=== PATIENT | female | born 1950 | race Caucasian/White ===

== ENCOUNTER 2019-12-16 19:46 | Inpatient (IN) | payer MEDICARE ==
[~2019-12-16] VITALS: Ht 172.7 cm; Wt 74.8 kg
--- NOTE | 2019-12-16 19:50 | NUR ---
PT AAOX4. AMBUALTORY WITH STEADY GAIT. BIBRA C/O LLQ ABD PAIN RADIATING TO THE BACK. + NAUSEA, - DYSURIA. PT STATED IT STARTED ABOUT 7 HORUS AGO. PLACED ON MONITOR AND PULSE OX. MD AT BEDSIDE FOR EVAL. AWAITING ORDERS.
[2019-12-16] MEDS ORDERED: MORPHINE SULFATE INJ 2 MG/ML DISP.SYRIN ONE (19:59)
[2019-12-16] MEDS ORDERED: ONDANSETRON HCL/PF 4 MG/2 ML VIAL ONE (19:59)
[2019-12-16] MEDS ORDERED: ONDANSETRON HCL/PF 4 MG/2 ML VIAL IVP ONE (20:00)
[2019-12-16] MEDS ORDERED: MORPHINE SULFATE INJ 2 MG/ML DISP.SYRIN IV ONE ×3 (20:00→22:00)
[2019-12-16] MEDS ORDERED: IV NS 0.9% 1,000 ML BAG IV ONE (20:00)
--- NOTE | 2019-12-16 20:04 | NUR ---
PT TAKEN TO CT
--- NOTE | 2019-12-16 20:10 | NUR ---
URINE SENT TO LAB
--- NOTE | 2019-12-16 20:10 | NUR ---
PT STATED SHE IS ALLERGIC TO DILAUDID BUT IS OKAY TO TAKE MORPHINE. AWARE.
--- NOTE | 2019-12-16 20:12 | NUR ---
PT BACK FROM CT
--- NOTE | 2019-12-16 20:29 | NUR ---
PROVIDER RELATIONS MANAGER AT BEDSIDE
--- NOTE | 2019-12-16 20:52 | NUR ---
SPOKE TO COMMAND POST CRAFTSMAN REGARDING URINE SAMPLE. STATED IT IS GOING TO BE PROCESSED SOON.
--- NOTE | 2019-12-16 20:52 | NUR ---
PT RESTING COMFORTBALY. VSS. PROVIDED WITH ADRIAN.
[2019-12-16 21:02] LABS: APPEARANCE,URINE Clear (CLEAR); BILIRUBIN,URINE Negative (NEGATIVE); BLOOD, URINE Trace-lysed Ery/uL (NEGATIVE); COLOR,URINE Yellow (YELLOW); KETONES,URINE 15 (NEGATIVE); LEUKOCYTE ESTERASE ,URINE Negative (NEGATIVE); NITRITE, URINE Negative (NEGATIVE); PROTEIN,URINE 30 mg/dl (NEGATIVE); UGLUCOSE Negative (NEGATIVE); UROBILINOGEN,URINE 0.2 EU/dL (0.2)
--- NOTE | 2019-12-16 21:04 | NUR ---
SPOKE TO SAUSAGE COOKER. RUNNING THE [facility] WILL DRAW SOON.
--- NOTE | 2019-12-16 21:16 | NUR ---
SWITCHBOARD RECEPTIONIST AT BEDSIDE
--- NOTE | 2019-12-16 21:22 | NUR ---
PAGED ABY SOLIS
[2019-12-16 21:25] LABS: BACTERIA,URINE Rare /HPF (None Seen); RBC,URINE 2-3/HPF /HPF (0-2); SQUAMOUS EPITHELIAL CELL,UR Few /HPF (None Seen); URINE AMORPHOUS URATE Rare /HPF (None Seen); WBC,URINE 0-2 /HPF (0-3)
[2019-12-16 21:34] LABS: BASOPHILS % (AUTO) 0.5 % (0.0-2.0); EOSINOPHILS % (AUTO) 0.1 % (0.0-6.0); HEMATOCRIT 27 % (33-45); HEMOGLOBIN 8.7 g/dL (11.5-14.8); LYMPHOCYTES # (AUTO) 0.5 /CMM (0.8-4.8); LYMPHOCYTES % (AUTO) 7.6 % (20.0-44.0); MEAN CORPUSCULAR HGB CONC 33 g/dl (31.0-36.0); MEAN CORPUSCULAR VOLUME 85 fL (82-100); MONOCYTES # (AUTO) 0.2 /CMM (0.1-1.30); MONOCYTES % (AUTO) 3.2 % (2.0-12.0); NEUTROPHILS # (AUTO) 6.1 /CMM (1.8-8.9); NEUTROPHILS % (AUTO) 88.6 % (43.0-81.0); PLATELET COUNT (AUTO) 180 /CMM (150-450); RED BLOOD CELL COUNT(AUTO) 3.13 MIL/uL (4.0-5.2); WHITE BLOOD COUNT (AUTO) 6.9 K/uL (4.3-11.0)
--- NOTE | 2019-12-16 21:35 | NUR ---
CALLED [facility] FOR BED
--- NOTE | 2019-12-16 21:37 | NUR ---
PT AMBULATED TO THE RESTROOM
[2019-12-16 21:43] LABS: CREATININE 1.2 mg/dL (0.6-1.3); POTASSIUM 3.4 mmol/L (3.5-5.1)
--- NOTE | 2019-12-16 21:43 | NUR ---
DR. RUTH SPEAKING WITH HOSPITALIST
[2019-12-16] MEDS ORDERED: IV 1/2NS 1000 ML 1,000 ML IV PRN (21:47)
[2019-12-16 21:49] LABS: ALBUMIN 2.5 g/dL (3.4-5.0); BILIRUBIN,DIRECT 0.1 mg/dL (0.0-0.2); BILIRUBIN,TOTAL 0.3 mg/dL (0.2-1.0); TOTAL PROTEIN, SERUM 4.9 g/dL (6.4-8.2)
--- NOTE | 2019-12-16 21:58 | NUR ---
BED ASSIGNMENT 201
[2019-12-16] MEDS ORDERED: Z GUARD REMEDY 2 OZ OINT TP PRN (22:00)
[2019-12-16] MEDS ORDERED: MAGNESIUM HYDROXIDE 30 ML UDC PO PRN (22:00)
[2019-12-16] MEDS ORDERED: POTASSIUM CHLORIDE 20 MEQ TAB.PRT.SR PO ONE (22:00)
[2019-12-16] MEDS ORDERED: MAG HYDROX/AL HYDROX/SIMETH 30 ML UDC PO PRN (22:00)
[2019-12-16] MEDS ORDERED: ACETAMINOPHEN 325 MG TABLET PO PRN (22:00)
[2019-12-16] MEDS ORDERED: ONDANSETRON HCL/PF - ER 4 MG/2 ML VIAL IV ONE (22:00)
--- NOTE | 2019-12-16 22:54 | NUR ---
REPORT GIVEN TO JERRELL RIVERO FOR YOLANDE
--- NOTE | 2019-12-16 22:55 | NUR ---
PT TRANSFERED PER [facility]
[2019-12-16 23:10] VITALS: BP 142/77
[2019-12-16] MEDS ORDERED: METO25TA3 PO ×2 (23:24)
[2019-12-16] MEDS ORDERED: LANS30CA54 PO (23:24)
[2019-12-16] MEDS ORDERED: HYDR-4354 PO (23:25)
[2019-12-16] MEDS ORDERED: BACL10TA PO (23:27)
[2019-12-16] MEDS ORDERED: LIFI1DRO OP (23:28)
--- NOTE | 2019-12-16 23:30 | NUR ---
RN ADMITTING NOTES RECEIVED REPORT FROM REAL ESTATE RENTAL AGENT NADEGE. Pt ARRIVED TO THE FLOOR VIA WHEELCHAIR; WAS ABLE TO WALK TO THE ROOM BED WITH STEADY GAIT. Pt IS A/OX4, VERBAL, ABLE TO MAKE NEEDS KNOWN. NO S/S OF ACUTE DISTRESS OR SOB NOTED AT THIS TIME. IV ACCESS ON LHAND #20G. SAFETY MEASURES IN PLACE. BED LOW, LOCKED, HOB ELEVATED, SIDE RAILS UP, CALL LIGHT AND BEDSIDE TABLE WITHIN REACH. BED ALARM ON. WILL CONTINUE TO MONITOR Pt's CONDITION AND SAFETY THROUGHOUT THE NIGHT.
[2019-12-16] MEDS ORDERED: FEXO180T94 PO (23:32)
[2019-12-17] VITALS: BP 142/77
--- NOTE | 2019-12-17 | NUR ---
RN NOTES Pt REFUSED TO TAKE OFF UNDERWEAR. ONLY ALLOWED PARTIAL SKIN ASSESSMENT. NO WOUNDS NOTED ON LOWER LEGS OR ARMS. PER Pt STATEMENT HAS NO WOUNDS ON BUTTOCKS OR SACRUM. Pt IS REFUSING FOR BED ALARM TO BE ON.
--- NOTE | 2019-12-17 00:05 | NUR ---
RN NOTES Pt IS REFUSING TO GIVE HER HOME MEDS TO US. SAID THAT SHE HAD A BAD EXPERIENCE WITH THE HOSPITAL LOSING HER HOME MEDS, AND NO LONGER TRUSTS THEM OR THE PHARMACY. TRIED EXPLAINING TO THE Pt HOW WE STORE THE HOME MEDS IN A SEALED ENVELOPE THAT PREVENTS THEFT OR TAMPERING AND THAT IT IS KEPT SAFE IN THE PHARMACY UNTIL Pt IS DISCHARGED, WHICH THEN WE BRING BACK TO THE Pt BEFORE THEY LEAVE. Pt STATED "THAT IS WHAT THEY ALL SAID TO ME AND THEY STILL ENDED UP LOSING MY MEDS OR NOT GIVING THEM BACK TO ME." SO Pt IS STILL REFUSING TO GIVE UP HER HOME MEDS THAT ARE KEPT IN 2 MINI ZIP LOCK BAGS AND LABELED "BACLOFEN" AND "VEDA" ON THE BAGS. WILL ENDORSE TO DAYSHIFT RN TO BE MADE AWARE.
[2019-12-17] MEDS: MORPHINE SULFATE INJ 2 MG/ML DISP.SYRIN IV PRN ×2 (02:27→06:46)
[2019-12-17] MEDS: ONDANSETRON HCL/PF 4 MG/2 ML VIAL IVP PRN ×2 (04:42→11:05)
[2019-12-17 06:17] LABS: BASOPHILS # (AUTO) 0.1 /CMM (0.0-0.2); BASOPHILS % (AUTO) 0.6 % (0.0-2.0); EOSINOPHILS % (AUTO) 0.1 % (0.0-6.0); HEMATOCRIT 31 % (33-45); HEMOGLOBIN 10.1 g/dL (11.5-14.8); LYMPHOCYTES # (AUTO) 0.7 /CMM (0.8-4.8); LYMPHOCYTES % (AUTO) 9.3 % (20.0-44.0); MEAN CORPUSCULAR HGB CONC 33 g/dl (31.0-36.0); MEAN CORPUSCULAR VOLUME 84 fL (82-100); MONOCYTES # (AUTO) 0.5 /CMM (0.1-1.30); MONOCYTES % (AUTO) 6.3 % (2.0-12.0); NEUTROPHILS # (AUTO) 6.7 /CMM (1.8-8.9); NEUTROPHILS % (AUTO) 83.7 % (43.0-81.0); PLATELET COUNT (AUTO) 219 /CMM (150-450)
--- NOTE | 2019-12-17 06:35 | NUR ---
RN CLOSING NOTES NO SIGNIFICANT CHANGES IN Pt's CONDITION DURING THE NIGHT. ALL NEEDS MET AND ATTENDED TO. Pt REMAINED STABLE PER BASELINE. NO S/S OF SEVERE ACUTE DISTRESS OR SOB NOTED DURING THE SHIFT. SAFETY MEASURES IN PLACE. Pt RESTING IN BED. WILL ENDORSE TO DAYSHIFT RN FOR Pt's YOLANDE.
[2019-12-17 06:42] LABS: CALCIUM, SERUM 9.4 mg/dL (8.5-10.1); CREATININE 1.7 mg/dL (0.6-1.3); MAGNESIUM 1.7 mg/dL (1.8-2.4); PHOSPHORUS 4.5 mg/dL (2.5-4.9); POTASSIUM 4.1 mmol/L (3.5-5.1)
[2019-12-17 06:58] LABS: THYROID STIMULATING HORMONE 0.578 uIU/mL (0.358-3.74)
--- NOTE | 2019-12-17 07:45 | NUR ---
RN OPENING NOTES Patient is resting in bed, A/O x4, showing no signs of acute distress or SOB, stable on RA. Patient has no complaints of pain at this time. IV line in the left hand #20g is clean and intact runing 1/2 NS @ 100mls/hr. Bed is in lowest position, side rails x3 in upright position, call light is within reach. Fall, safety and aspiration precautions enforced. Will continue to monitor.
[2019-12-17 08:00] VITALS: BP 174/90
[2019-12-17] MEDS: PANTOPRAZOLE 40 MG VIAL IV SCH ×2 (08:58→18:16)
[2019-12-17] MEDS ORDERED: PANTOPRAZOLE 40 MG TABLET.DR PO SCH (09:00)
[2019-12-17] MEDS ORDERED: hydrALAZINE HCL IV 20 MG VIAL IV PRN (09:00)
[2019-12-17] MEDS: ENOXAPARIN SODIUM 40 MG/0.4 ML DISP.SYRIN SQ SCH (09:00)
--- NOTE | 2019-12-17 09:00 | NUR ---
RN NOTE Notified Dr. Jerome of patient BP 162/85 HR 116. Received telephone order for Hydralazine 10mg IV Q6hr PRN.
--- NOTE | 2019-12-17 11:22 | NUR ---
RN NOTE OK PER MD TO ADVANCE PATIENT TO CLEAR LIQUID DIET FOR LUNCH TO SEE HOW PATIENT CAN TOLERATE.
[2019-12-17] MEDS ORDERED: Magnesium 1GM/D5W 100ML PREMIX 100 ML IV SCH (12:11)
[2019-12-17] MEDS: IV 1/2NS 1000 ML 1,000 ML IV PRN ×2 (12:48→22:02)
[2019-12-17] MEDS: BACLOFEN (10 MG) 10 MG TABLET PO PRN ×2 (15:39→20:06)
[2019-12-17] MEDS: HYDROCODONE/APAP 10/325MG 1 EA TABLET PO PRN ×2 (15:40→20:06)
[2019-12-17 16:00] VITALS: BP 161/89
--- NOTE | 2019-12-17 18:43 | NUR ---
RN CLOSING NOTES Patient is resting in bed, A/O x4, showing no signs of acute distress or SOB, stable on RA. Patient has no complaints of pain at this time. IV line in the left hand #20g is clean and intact runing 1/2 NS @ 100mls/hr. All patient needs met, all due medications given. Patient is ambulatory with BRP. Bed is in lowest position, side rails x3 in upright position, call light is within reach. Fall, safety and aspiration precautions enforced. Will endorse to certified nursing assistant instructor.
--- NOTE | 2019-12-17 19:30 | NUR ---
MS RN RECEIVE PT IN BED A/O X 4, NOT IN DISTRESS, STABLE. SAFETY MEASURES AT ALL TIMES. WILL CONT TO MONITOR.
[2019-12-17 20:00] VITALS: BP 151/78
[2019-12-17 20:15] VITALS: BP 151/78
[2019-12-17] MEDS ORDERED: METOPROLOL SUCCINATE 25 MG TAB.SR.24H PO SCH (22:00)
[2019-12-18] MEDS: BACLOFEN (10 MG) 10 MG TABLET PO PRN ×3 (03:05→11:57)
[2019-12-18] MEDS: HYDROCODONE/APAP 10/325MG 1 EA TABLET PO PRN ×3 (03:05→11:57)
--- NOTE | 2019-12-18 05:55 | NUR ---
MS RN ASLEEP AND EASILY AWAKEN, MONITORED FOR PAIN. NEEDS ATTENDED AND ANTICIPATED, KEPT CLEAN, DRY AND COMFORTABLE. AM CARE RENDERED, SAFETY MEASURES AT ALL TIMES. WILL ENDORSE TO NEXT SHIFT.
[2019-12-18] MEDS: IV 1/2NS 1000 ML 1,000 ML IV PRN (06:32)
[2019-12-18 07:38] LABS: BASOPHILS % (AUTO) 0.7 % (0.0-2.0); EOSINOPHILS % (AUTO) 1.6 % (0.0-6.0); HEMATOCRIT 32 % (33-45); HEMOGLOBIN 10.5 g/dL (11.5-14.8); LYMPHOCYTES # (AUTO) 1.2 /CMM (0.8-4.8); LYMPHOCYTES % (AUTO) 22.9 % (20.0-44.0); MEAN CORPUSCULAR HGB CONC 33 g/dl (31.0-36.0); MEAN CORPUSCULAR VOLUME 84 fL (82-100); MONOCYTES # (AUTO) 0.4 /CMM (0.1-1.30); MONOCYTES % (AUTO) 6.8 % (2.0-12.0); NEUTROPHILS # (AUTO) 3.6 /CMM (1.8-8.9); PLATELET COUNT (AUTO) 230 /CMM (150-450); RED BLOOD CELL COUNT(AUTO) 3.79 MIL/uL (4.0-5.2); WHITE BLOOD COUNT (AUTO) 5.4 K/uL (4.3-11.0)
[2019-12-18] MEDS: PANTOPRAZOLE 40 MG VIAL IV SCH (07:41)
[2019-12-18] MEDS: ENOXAPARIN SODIUM 40 MG/0.4 ML DISP.SYRIN SQ SCH (07:43)
[2019-12-18 07:58] LABS: ALBUMIN 3.2 g/dL (3.4-5.0); BILIRUBIN,TOTAL 0.9 mg/dL (0.2-1.0); CALCIUM, SERUM 9.8 mg/dL (8.5-10.1); CREATININE 1.3 mg/dL (0.6-1.3); PHOSPHORUS 3.8 mg/dL (2.5-4.9); POTASSIUM 4.1 mmol/L (3.5-5.1); TOTAL PROTEIN, SERUM 6.6 g/dL (6.4-8.2)
[2019-12-18 08:00] VITALS: BP 165/83
--- NOTE | 2019-12-18 15:42 | NUR ---
d/c note pt d/c home. vss, pt stable, no c/o pain at this time. all lines removed. d/c instructions and valuables list signed, copied placed in chart. educ ation provided with teach back following. pt left hospital with friend in private vehicle.
== END 2019-12-18 14:20 | disposition home health service (06) | DRG 438 ==
LOC: ER 19:46 → MEDSG2 22:26
PROVIDERS: ADMIT Registered Nurse; ATTEND Registered Nurse
DX: K85.90 Acute pancreatitis without necrosis or infection, unspecified (principal); N17.0 Acute kidney failure with tubular necrosis; D68.0 Von Willebrand disease; N13.2 Hydronephrosis with renal and ureteral calculous obstruction; N13.30 Unspecified hydronephrosis; F11.20 Opioid dependence, uncomplicated; I10 Essential (primary) hypertension; K58.9 Irritable bowel syndrome, unspecified; Z90.13 Acquired absence of bilateral breasts and nipples; Z85.3 Personal history of malignant neoplasm of breast; Z98.1 Arthrodesis status; Z90.49 Acquired absence of other specified parts of digestive tract; Z88.1 Allergy status to other antibiotic agents; Z88.5 Allergy status to narcotic agent; Z88.8 Allergy status to other drugs, medicaments and biological substances; Z91.09 Other allergy status, other than to drugs and biological substances; Z98.84 Bariatric surgery status; Z92.3 Personal history of irradiation; Z92.21 Personal history of antineoplastic chemotherapy; Z79.899 Other long term (current) drug therapy; G89.4 Chronic pain syndrome; E87.6 Hypokalemia; D50.0 Iron deficiency anemia secondary to blood loss (chronic)
CPT/HCPCS: 36415; 80048-TC; 80053-TC; 80061-TC; 80076-TC; 81000-TC; 82550-TC; 82728-TC; 83540-TC; 83690-TC; 83735-TC; 83970; 84100-TC; 84443-TC; 85025-TC; 87081-TC; C9113; G0378; J0360; J1650; J2270; J2405; J3475; J3490; J7030